=== PATIENT | female | born 1950 | race Caucasian/White ===

== ENCOUNTER 2017-02-26 13:33 | Outpatient (CLI) | payer MEDICARE ==
--- NOTE | 2017-02-26 19:37 | RAD ---
RIGHT KNEE THREE VIEWS 02/26/17 No acute fracture was seen. There is slight medial joint space narrowing and a few osteophytes begin natanael to form. A little irregularity of bone near the apex of the fibular head could be from an old i njury, and the same could be said of a small ossification just lateral to the lateral femoral condyl e. There are osteophytes in the patellofemoral joint. A small joint effusion is present. The oblique view suggests there might be a little linear periosteal reaction along the upper tibial shaft, but is not seen on all views and is somewhat benign in appearance. IMPRESSION: 1. Scattered arthritic changes but no acute bony findings. 2. Small joint effusion. POS: HOME
== END 2017-02-26 13:34 | disposition home or self-care (01) ==
LOC: BURRAD 13:33
PROVIDERS: ATTEND Family Medicine
DX: M17.11 Unilateral primary osteoarthritis, right knee (principal); M25.461 Effusion, right knee

== ENCOUNTER 2017-12-15 11:08 | Outpatient (CLI) | payer MEDICARE ==
--- NOTE | 2017-12-15 14:49 | RAD ---
LEFT HIP TWO VIEWS: 12/15/2017 FINDINGS: No fracture or area of bony destruction is seen. The hip joint space is normal, and the articular arnold rfaces are smooth. IMPRESSION: No significant finding. POS: HOME
--- NOTE | 2017-12-15 14:51 | RAD ---
LEFT ANKLE THREE VIEWS: 12/15/2017 COMPARISON: No prior films were available for comparison. FINDINGS: There is a multiplicity of bony densities and irregularity to the medial malleolus, signifying old tr auma here. None of it appears acute. No acute fracture is indicated. The joint space seems normal in width. No defects are seen in the articular surfaces. Soft tissue swelling is present around the ankle. IMPRESSION: 1. Soft tissue swelling and evidence of old trauma, medially. 2. No acute bony changes. POS: HOME
== END 2017-12-15 11:09 | disposition home or self-care (01) ==
LOC: BURRAD 11:08
PROVIDERS: ATTEND Family Medicine
DX: M25.552 Pain in left hip (principal); M25.572 Pain in left ankle and joints of left foot; M79.89 Other specified soft tissue disorders